=== PATIENT | male | born 1975 | race Caucasian/White ===

== ENCOUNTER 2016-07-08 18:06 | Emergency (ER) | payer BC ==
[2016-07-08] MEDS ORDERED: Ibuprofen TAB* 600 MG PO ONE (21:10)
[2016-07-08] MEDS ORDERED: oxyCODONE/Acetamin 5/325 MG* TAB PO ONE ×2 (21:10→21:36)
--- NOTE | 2016-07-08 21:32 | RAD ---
HISTORY: Pain, status post right knee trauma COMPARISONS: September 14, 2015 VIEWS: 4, Frontal, lateral, axial, and oblique views of the right knee FINDINGS: BONE DENSITY: Normal. BONES: There is no displaced fracture. JOINTS: There is no arthropathy. There is no suprapatellar joint effusion or lipohemarthrosis. ALIGNMENT: There is no dislocation. SOFT TISSUES: Unremarkable. OTHER FINDINGS: None. IMPRESSION: NO ACUTE OSSEOUS INJURY. IF SYMPTOMS PERSIST, RECOMMEND REPEAT IMAGING.
--- NOTE | 2016-07-08 21:32 | ED ---
Lower Extremity - HPI Summary HPI Summary: Patient was jumping on a trampoline for his child's birthday alliance party when his knee gave out. He had immediate pain and swelling in the knee, and was unable to bear weight because it kept collapsing. He denies previous injury to this knee. There is swelling and pain. He is unable to raise the lower part of his leg in the air. No N/T. - History of Current Complaint Chief Complaint: EDExtremityLower Stated Complaint: RIGHT KNEE POSSIBLE DISLOCATION Time Seen by Provider: 07/08/16 20:59 Hx Obtained From: Patient, Family/Cement Handler Mechanism Of Injury: Twisted Onset of Pain: Immediate Onset/Duration: Hours Severity Initially: Severe Severity Currently: Moderate Pain Intensity: 3 Timing: Constant Location: Is Discrete @ - right knee Character Of Pain: Dull, Aching, Stiffness Associated Signs And Symptoms: Positive: Swelling, Knee Pain Aggravating Factor(s): Standing, Movement Alleviating Factor(s): Nothing Able to Bear Weight: No - Allergies/Home Medications Allergies/Adverse Reactions: Allergies Allergy/AdvReac Type Severity Reaction Status Date / Time No Known Allergies Allergy Verified 09/14/15 16:41 PMH/Surg Hx/FS Hx/Imm Hx Previously Healthy: Yes Endocrine/Hematology History: Denies: Hx Anticoagulant Therapy, Hx Blood Disorders, Hx Anemia, Hx Unexplained Bleeding Infectious Disease History: No Infectious Disease History: Denies: Traveled Outside the [place] in Last 30 Days - Family History Known Family History: Positive: Cardiac Disease, Other - cancer (organ - no blood related cancer) - Social History Occupation: Employed Full-time Lives: With Family Alcohol Use: Occasionally Hx Substance Use: No Substance Use Type: Reports: None Hx Tobacco Use: No Smoking Status (MU): Never Smoked Tobacco Review of Systems Positive: Arthralgia, Decreased ROM, Edema Negative: Weakness, Paresthesia, Numbness All Other Systems Reviewed And Are Negative: Yes Physical Exam Triage Information Reviewed: Yes Vital Signs On Initial Exam: Initial Vitals Temp Pulse Resp BP Pulse Ox 98.0 F 83 20 137/78 97 07/08/16 18:09 07/08/16 18:09 07/08/16 18:09 07/08/16 18:09 07/08/16 18:09 Vital Signs Reviewed: Yes Appearance: Positive: Well-Appearing, Pain Distress, Obese Skin: Positive: Warm, Skin Color Reflects Adequate Perfusion, Dry, Soft Head/Face: Positive: Normal Head/Face Inspection Eyes: Positive: EOMI, KATYA, Conjunctiva Clear ENT: Positive: Hearing grossly normal Respiratory/Lung Sounds: Positive: Breath Sounds Present Cardiovascular: Positive: RRR Musculoskeletal: Positive: Limited @ - unable to perform SLR, Pain @ - TTP right patella and tibial tuberosity, Edema Right - knee Neurological: Positive: Sensory/Motor Intact, Alert, Oriented to Person Place, Time, NV Bundle Intact Distally Psychiatric: Positive: Affect/Mood Appropriate AVPU Assessment: Alert Diagnostics - Vital Signs Vital Signs Temp Pulse Resp BP Pulse Ox 07/08/16 19:38 98.4 F 69 133/82 97 07/08/16 18:09 98.0 F 83 20 137/78 97 - Laboratory Lab Statement: Any lab studies that have been ordered have been reviewed, and results considered in the medical decision making process. - Radiology No standard instances Xray Interpretation: Positive (See Comments) - patella mesfin Radiology Interpretation Completed By: ED Physician Lower Extremity Course/Dx - Diagnoses Differential Diagnosis/HQI/PQRI: Positive: Arthritis, Bursitis, Cellulitis, Contusion, Dislocation, Fracture (Closed), Phlebitis, Sprain, Strain Provider Diagnoses: Patellar tendon rupture Discharge - Discharge Plan Condition: Stable Disposition: HOME Prescriptions: oxyCODONE/Acetamin 5/325 MG* [Percocet 5/325 TAB*] 2 tab PO Q8H PRN #30 tab MDD 6 PRN Reason: Pain Patient Education Materials: Tendon Rupture (ED) Forms: *Work Release Referrals: Virgilio Abarca MD [Primary Care Provider] - Terry Hinton MD [Medical Doctor] - Additional Instructions: Please wear your knee immobilizer at all times. You can remove to shower and change clothes, but do not bear any weight on the leg at these times. Elevate your knee above your heart, ice and use ibuprofen 600mg three times daily with meals to reduce swelling and pain. Use pain medication as needed. Use crutches to ambulate. Call Dr. Hinton tomorrow with orthopedics for an appointment this week for evaluation. Return to the emergency department if your symptoms worsen.
[2016-07-08 22:49] VITALS: BP 147/90
== END 2016-07-08 22:49 | disposition home or self-care (01) ==
LOC: ED 18:06
DX: S76.111A Strain of right quadriceps muscle, fascia and tendon, initial encounter (principal); R60.9 Edema, unspecified; X50.0XXA Overexertion from strenuous movement or load, initial encounter; Y93.44 Activity, trampolining; Y92.89 Other specified places as the place of occurrence of the external cause; Y99.9 Unspecified external cause status
CPT/HCPCS: 99283; A9270-GY

== ENCOUNTER 2016-07-18 06:38 | Day surgery (SDC) | payer BC ==
[~2016-07-18 06:38] MED LIST: Buffered Lidocaine 1% SYR 3ML* 3 ML/SYR SYRINGE INTRADERM ONE
[2016-07-18] MEDS ORDERED: ceFAZolin 2 GM PREMIX (*) 2 GM/50 ML BAG IVPB ONE (06:57)
[2016-07-18] MEDS ORDERED: fentaNYL* 50 MCG/ML 2 ML VIAL (100 MCG VIAL) ONE ×3 (07:44→10:09)
[2016-07-18] MEDS ORDERED: Midazolam* 1 MG/ML 2 ML VIAL (2 MG) ONE (07:44)
[2016-07-18] MEDS ORDERED: Propofol* 10 MG/ML 20 ML BTL IV PUSH ONE ×2 (08:10→08:43)
[2016-07-18] MEDS ORDERED: Lidocaine 2% PF * 5 ML VIAL ONE (08:10)
[2016-07-18] MEDS ORDERED: Dexamethasone IV* 4 MG/ML 1 ML (4 MG) ONE (08:10)
[2016-07-18] MEDS ORDERED: Ondansetron INJ* 2 MG/ML VIAL ONE (08:10)
[2016-07-18] MEDS ORDERED: Succinylcholine* 20 MG/ML 10 ML VIAL ONE (08:10)
[2016-07-18] MEDS ORDERED: Bupivacaine 0.5% W/EPI SDV* 30 ML VIAL ONE (08:25)
[2016-07-18] MEDS ORDERED: HYDROmorphone INJ* 1 MG/ML CARPUJECT SYRINGE IV PRN (10:47)
[2016-07-18] MEDS ORDERED: Ketorolac INJ* 30 MG/ML 1 ML VIAL IV PRN (10:47)
[2016-07-18] MEDS ORDERED: fentaNYL* 50 MCG/ML 2 ML VIAL (100 MCG VIAL) IV PRN (10:47)
[2016-07-18] MEDS ORDERED: Ketorolac INJ* 30 MG/ML 1 ML VIAL ONE (10:57)
[2016-07-18] MEDS ORDERED: oxyCODONE/Acetamin 5/325 MG* TAB ONE (11:23)
[2016-07-18] MEDS ORDERED: HYDROmorphone INJ* 1 MG/ML CARPUJECT SYRINGE ONE (12:09)
[2016-07-18 12:57] VITALS: BP 143/73
--- NOTE | 2016-07-19 10:51 | OP ---
OPERATIVE NOTE: DATE OF OPERATION: 07/18/16 DATE OF : 77 SURGEON: Mino Mata MD. GLAZING MACHINE OPERATOR: VISHNU Bravo. ANESTHESIOLOGIST: Drea Saldana MD. ANESTHESIA: General anesthesia, local anesthesia. PRE-OP DIAGNOSIS: Right patellar tendon rupture. POST-OP DIAGNOSIS: Right patellar tendon rupture. OPERATIVE PROCEDURE: Right open patellar tendon repair. ANTIBIOSIS: 2 g Ancef IV. IV FLUIDS: See Anesthesia note. TOURNIQUET TIME: 120 minutes at 300 mmHg. COMPLICATIONS: None. SPECIMENS: None. IMPLANTS: None. ESTIMATED BLOOD LOSS: Minimal. 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 He did this while using a tr[facility] [employer] [facility]. At the end of the alliance party, he went to the emergency department, where x-rays demonstrated a supe riorized right patella, without fracture. The patient was given the provisional diagnosis of a corona llar tendon rupture, given a knee immobilizer and crutches. Of note, the patient has a past medical history of psoriasis and has just started Cosentyx IV treatments. On exam in clinic, the patient h ad significant right knee swelling and tenderness to palpation at the proximal patellar tendon. His straight leg raise was not intact. There is a divot appreciated between the patellar tendon and th e patella and the patella was superiorized. MRI demonstrated what looked to be a partially midsubst ance tear laterally and a partial proximal tear medially off the undersurface of the patella. That w as the radiologist's read and that was my initial read, although I was less certain of this geometry of tear the longer I spent looking at the MRI. Therefore, I was ready for any type of repair, [id number], proximal repair with bone tunnels, mid substance repair, and even a distal tendon repair. DESCRIPTION OF PROCEDURE: Preoperative written consent. Operative extremity was marked in preopera tive holding. Benefits, risks, and potential complications of the procedure described in detail and agreed to. The patient was taken back to the operating room and placed supine on operating room ta ble. The patient was sedated and intubated. A high proximal thigh tourniquet was placed, but not e levated. The lateral thigh post was placed. Foot bumps on the table were placed to position the kn ee at both 30 and 90 degrees of flexion. The right lower extremity was prepped and draped. Surgica l time-out was performed. Esmarch was applied and the tourniquet was elevated 300 mmHg. An anterio r midline longitudinal skin incision was made. Initially this incision was made from just proximal to the distal pole of the patella to just distal to the tibial tuberosity. This incision was grace d down through the subcutaneous tissue with a deep knife and then with dissection scissors to the pa ratenon layer, which was not easily visible as it was involved in a clear disruption at the extensor mechanism about the proximal patellar tendon. Irrigation. Cleared off the extensor mechanism, diss ected the paratenon off of the patellar tendon after a midline longitudinal split in the paratenon. Most of the length of the patellar tendon was fully intact. There was a wisp of patellar tendon st ill attached to the lateral aspect of the patella. This was not substance of patellar tendon, and r ather appeared to just represent a part of a coronal plane shear of tendon tissue, likely the most a nterior part of the proximal lateral tendon. It appeared that this was mostly a disruption off of b one. The medial and lateral retinaculum, as expected, showed complete tears. Irrigation. Bone roshan jules x3 were made distal to proximal through the patella. HeAcertiv suture passer was used to pass kitty e temporary passing [place] of trust 2-0 sutures. These drill holes definitely did not violate the a rticular cartilage deep and went the full length of the patella. Before drilling the tunnels, I imm obilized nicely the patella in all directions, freeing it up medial, lateral, and proximal superfici al to the extensor mechanism with my digits safely. I next addressed the patellar tendon. It looke d as though the patellar tendon would nicely reach the patella, so no interposition of tissue of any sort was required. I used a FiberWire #5 suture and placed two Krackow stitches in the distal and then in the proximal direction through the patellar tendon. Passed suture through the bone tunnels using [place] of trust temporary sutures. I then moved the central sutures to the medial and lateral side, so as not to incarcerate any quadriceps tendon. With the knee fully extended and the patella nicely reduced, I tied these #5 FiberWire suture stitches proximally. I then took the wisp of corona llar tendon tissue, anterior and lateral off the patella and laid it nicely over the patellar tendon . I then whip-stitched this wisp of tissue over the other reconstructed patellar tendon with a whip stitch using a FiberWire #2 suture. I then placed one additional whipstitch with a FiberWire #2 sut ure. This satisfied me that there were many interlocking stitches in the patellar tendon. I then c losed the medial and lateral retinaculum with several permanent stitches, Ti-Cron 0 suture figure-of -eight stitches as well as multiple gajqvo-ua-lpxxp stitches using absorbable Vicryl 0 suture. I te sted the repair and the knee was able to flex 45 degrees easily with gravity without any disruption of the repair. Some additional yvbqtw-tk-jysc stitches with Vicryl 0 suture of some overlying tissu es about the patella and extensor mechanism. I then closed the paratenon with a running stitch as w ell as several simple stitches using Vicryl 2-0 suture. Irrigation. Closure of the subcutaneous ti ssue with buried simple stitches using Vicryl 2-0 suture. Closure of the skin with lea. Tourniq uet was deflated at 120 minutes. Xeroform, 4x4's, ABDs, sterile Webril, Iglesia bandages from foot to p roximal thigh. With the patient still completely sedated, placed a knee brace, locked in full exten vera. The patient was awakened, extubated, and transferred to the PACU. DISPOSITION: The patient will follow up with me 12 to 14 days postoperatively. Percocet for pain co ntrol, aspirin for DVT prophylaxis, and Keflex for infection prophylaxis. I stressed to the patient 's family the importance of him remaining in that knee brace locked in extension at all times. The patient's says that he is noncompliant, so I really emphasized the importance of this surgery w orking well on him following rehab. I emphasized the fact that if the patellar tendon repair fails, patellar tendon reconstructions with allograft, Achilles tendons, and other auto or allografts do n ot do well at all and do not result in full function, so it is really important that he follows my i nstructions. Depending on how the patient recovers in the first few days, I will determine whether or not I want to send him to physical therapy prior to my first postoperative clinic visit with him. [id number]/[facility] #: [id number]
== END 2016-07-18 13:00 | disposition home or self-care (01) ==
LOC: OR 06:38
PROVIDERS: ATTEND Orthopaedic Surgery
DX: S76.111A Strain of right quadriceps muscle, fascia and tendon, initial encounter (principal); G47.33 Obstructive sleep apnea (adult) (pediatric); X50.0XXA Overexertion from strenuous movement or load, initial encounter; Y93.44 Activity, trampolining; Y92.89 Other specified places as the place of occurrence of the external cause
CPT/HCPCS: A9270-GY; J0330; J0690; J1100; J1170; J1885; J2250; J2405; J2704; J3010

== ENCOUNTER 2017-06-04 16:37 | Emergency (ER) | payer BC ==
--- OUTSIDE RECORDS SUMMARY | 2017-06-04 17:18 | XMS REPORT ---
:1975 External Reference #:[id number] Author Organization [facility] Address [address] [address] Phone [phone] Care Team Providers Name Role Phone Ahsan Rosas MD Primary Care Physician Unavailable Payers Type Date Identification Numbers Payment Provider Subscriber Commercial Effective: Policy Number: BS Terrell Bentley 2014 [id number] PayID: [id number] [address] [address] [place] [address] Medigap Part B Effective: Policy Number: BS Nakul Bentley 2008 [id number] Expires: 2014 PayID: [id number] [address] [address] [place] [address] Problems Description No Information Family History Date Family Member(s) Problem(s) Comments General Heart Disease General Cancer General Stroke Social History Type Date Description Comments 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 Use Denies alcohol use Smoking Patient has never smoked Exercise Type/Frequency Does not exercise Allergies, Adverse Reactions, Alerts Date Description Reaction Status Severity Comments 07/10/2016 NKDA active Medications Medication Date Status Form Strength Qnty SIG Indications Ordering Provider Cosentyx / Active Solution 150mg/ml Inject 2 Pens Unknown Sensoready 0000 Auto-Injec Subcutaneously Pen t Once Weekly On Weeks 0 1 2 3 And 4 Percocet 07/25/ Hx Tablets 5-325mg 42tab 1 tab by mouth Mino 2016 every 4-6 hours F 08/27/ Partha Mata MD Valium 07/19/ Hx Tablets 5mg 30tab Take 1 tab Mino 2016 - every 6 hours F 08/27/ as needed for Esperanza 2016 pain and muscle MD spasm Percocet 07/18/ Hx Tablets 5-325mg 60tab take 1-2 tabs Mino 2016 - by mouth q4-6 F 08/27/ hours as needed Partha Mata pain MD Keflex 07/18/ Hx Capsules 500mg 40cap 1 tab by mouth Mino 2016 - four times a F 08/27/ day Partha Mata MD Aspirin 07/18/ Hx Tablets 325mg 20tab 1 by mouth Adalberto 2016 - twice daily Ryan, until post op M.D. 2017 visit Fluoxetine / Hx Capsules 20mg take 2 capsules Unknown HCL 0000 - by mouth once daily 2016 Bupropion / Hx Tablets ER 150mg take 1 tablet Unknown HCL ER (XL) 0000 - 24HR by mouth once 2016 Vital Signs Date Vital Result Comment 05/06/2017 Height 67 inches 5'7" Weight 250.00 lb per pt Heart Rate 70 /min reg BP Systolic Sitting 150 mmHg Rue, lg cuff BP Diastolic Sitting 94 mmHg Rue, lg cuff Respiratory Rate 16 /min Body Temperature 98.3 F tympanic Pain Level 4 right knee BMI (Body Mass Index) 39.2 kg/m2 04/30/2017 Height 67 inches 5'7" Weight 250.00 lb Heart Rate 78 /min Respiratory Rate 14 /min Body Temperature 97.8 F Pain Level 0 BMI (Body Mass Index) 39.2 kg/m2 01/29/2017 Height 67 inches 5'7" Weight 250.00 lb Heart Rate 65 /min Respiratory Rate 16 /min Body Temperature 97.1 F Pain Level 0 BMI (Body Mass Index) 39.2 kg/m2 11/22/2016 Height 67 inches 5'7" Weight 250.00 lb Heart Rate 80 /min Respiratory Rate 15 /min Pain Level 0 BMI (Body Mass Index) 39.2 kg/m2 10/09/2016 Height 67 inches 5'7" Weight 250.00 lb Heart Rate 72 /min BP Systolic 136 mmHg BP Diastolic 86 mmHg Respiratory Rate 17 /min Body Temperature 95.8 F Pain Level 0 BMI (Body Mass Index) 39.2 kg/m2 08/28/2016 Height 67 inches 5'7" Weight 230.00 lb Respiratory Rate 16 /min Pain Level 0 BMI (Body Mass Index) 36.0 kg/m2 08/14/2016 Height 67 inches 5'7" Weight 230.00 lb Heart Rate 77 /min BP Systolic 125 mmHg BP Diastolic 82 mmHg Respiratory Rate 19 /min Body Temperature 97.7 F Pain Level 0 BMI (Body Mass Index) 36.0 kg/m2 07/30/2016 Height 67 inches 5'7" Weight 230.00 lb Respiratory Rate 16 /min Body Temperature 98.6 F Pain Level 1 BMI (Body Mass Index) 36.0 kg/m2 07/10/2016 Height 67 inches 5'7" Weight 230.00 lb Heart Rate 83 /min BP Systolic 136 mmHg BP Diastolic 91 mmHg BMI (Body Mass Index) 36.0 kg/m2 Results Description No Information Procedures Date CPT Code Description Status 07/18/2016 28526 Repair Infrapatellar Tendon Primary Completed 07/18/2016 36757 Repair Infrapatellar Tendon Primary Completed 06/23/2009 14768 ECHO Transthoracic, Real-Time 2D With Doppler And Color Completed Flow 03/01/2009 69029 ECHO Stress Test Incl Perf Contiuous ekg Monitoring Completed W/Phys Superv 03/01/2009 96415 ECHO Stress Test Incl Perf Contiuous ekg Monitoring Completed W/Phys Superv Encounters Type Date Location Provider CPT E/M Dx Office Visit 01/29/2017 [facility] Mino Mata, 99419 S86.211D 9:15a [facility] Office Visit 11/22/2016 [facility] M[facility] Mata 48252 S86.211D 8:00a [facility] Office Visit 07/10/2016 [facility] Mino Mata, 29342 M76.51 9:30a [facility] S86.812A Office Visit 03/01/2009 8:30a [facility] Ashwini Oconnor, 71327 786.05 M.Nasreen 278.00 Plan of Care Future Appointment(s):07/02/2017 8:30 am - Mino Mata MD at [facility]/06/2017 - Mino Mata MDS86.211D Strain musc/tend ant grp at low leg level, right leg, subsFollow up:Follow up: follow -up by telephone after I get the official MRI read
--- OUTSIDE RECORDS SUMMARY | 2017-06-04 17:18 | XMS REPORT ---
:1975 External Reference #:[id number] Author Organization [facility] [employer] [employer] Address [address] [place] [address] Phone [phone] Care Team Providers Name Role Phone Ahsan Rosas MD Care Team Information Human Resources Officer Unavailable Ahsan Rosas MD Primary Care Physician Unavailable Payers Type Date Identification Numbers Payment Provider Subscriber Commercial Policy Number: [id number] BS MISA Qiana Bentley PayID: [id number] [address] [address] [place] [address] Problems Description No Information Family History Date Family Member(s) Problem(s) Comments Father Cancer First Sister Sleep Apnea Social History Type Date Description Comments 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 four times a day as needed for pain Cosentyx Active Soln 150mg/ml Unknown 000 Prefill Syringe Humira Hx PSKT Unknown 000 - 017 Wellbutrin SR 0 Hx Tablets ER daily Unknown 000 - 12HR 017 Vital Signs Date Vital Result Comment 05/15/2017 Weight 251.12 lb Height 67 inches 5'7" BMI (Body Mass Index) 39.3 kg/m2 BP Systolic 148 mmHg BP Diastolic 106 mmHg Heart Rate 81 /min O2 % BldC Oximetry 96 % Body Temperature 97.4 F Pain Level 0 pt states nos is sore to touch 03/15/2017 Weight 255.00 lb Height 67 inches 5'7" BMI (Body Mass Index) 39.9 kg/m2 BP Systolic 118 mmHg BP Diastolic 82 mmHg Heart Rate 83 /min O2 % BldC Oximetry 94 % Body Temperature 97.5 F Pain Level 0 01/18/2016 Weight 222.00 lb Height 67 inches 5'7" BMI (Body Mass Index) 34.8 kg/m2 BP Systolic 123 mmHg BP Diastolic 84 mmHg Heart Rate 83 /min O2 % BldC Oximetry 97 % Body Temperature 97.9 F [place] Score 18 10/28/2015 Weight 220.00 lb Height 67 inches 5'7" BMI (Body Mass Index) 34.5 kg/m2 BP Systolic 130 mmHg BP Diastolic 74 mmHg Heart Rate 75 /min O2 % BldC Oximetry 96 % Body Temperature 98.3 F [place] Score 14 Neck Circumference in inches 17 Results Description No Information Procedures Date CPT Code Description Status 03/15/2017 17873 Nasal Endoscopy, Diag. Completed 11/15/2015 99102 Sleep Study, Simultaneous Recording Of Completed Ventilation,Unattended Encounters Type Date Location Provider CPT E/M Dx Office Visit 03/15/2017 2:00p [facility] Parmjit Kilgore M.D. 21288 G47.33 J34.2 J34.3 Office Visit 01/18/2016 3:15p [facility] Parmjit Kilgore M.D. 40170 G47.33 E66.9 J31.0 Office Visit 10/28/2015 10:45a [facility] Rossana David M.D. 29336 G47.30 R06.83 E66.9 Plan of Care No Information Available
--- OUTSIDE RECORDS SUMMARY | 2017-06-04 17:18 | XMS REPORT ---
:1975 External Reference #:[id number] Author Organization [facility] Address [address] [place] [address] Phone [phone] Care Team Providers Name Role Phone Ahsan Rosas MD Care Team Information Mcat Tutor Unavailable Ahsan Rosas MD Primary Care Physician Unavailable Payers Type Date Identification Numbers Payment Provider Subscriber Commercial Policy Number: [id number] BS MISA Qiana Bentley PayID: [id number] [address] [address] [place] [address] Problems Description No Information Family History Date Family Member(s) Problem(s) Comments Father Cancer First Sister Sleep Apnea Social History Type Date Description Comments 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 Completed 11/15/2015 87624 Sleep Study, Simultaneous Recording Of Completed Ventilation,Unattended Encounters Type Date Location Provider CPT E/M Dx Office Visit 03/15/2017 2:00p [facility] Parmjit Kilgore M.D. 70687 G47.33 J34.2 J34.3 Office Visit 01/18/2016 3:15p [facility] Parmjit Kilgore M.D. 19911 G47.33 E66.9 J31.0 Office Visit 10/28/2015 10:45a [facility] Rossana David M.D. 08521 G47.30 R06.83 E66.9 Plan of Care Future Appointment(s):08/16/2017 1:45 pm - Parmjit Kilgore M.D. at [facility]
--- NOTE | 2017-06-04 18:18 | RAD ---
INDICATION: Drillbit versus right thumb COMPARISON: None TECHNIQUE: 3 views of the right thumb were obtained. FINDINGS: Overlying the midline dorsal right thumb distal phalanx there is a punctate hyperdense focus that could represent a small piece of metal in this clinical situation. There is evidence of soft tissue injury involving the right thumb nailbed and cuticle. The bones are normal alignment. Joint spaces appear maintained. No fracture is seen. IMPRESSION: Soft tissue injury with potential punctate subcutaneous foreign body.
[2017-06-04] MEDS ORDERED: Tetan/Diph/Pertus SYR(Tdap)* 0.5 ML SYR(BOOSTRIX) use SYR IM ONE (22:22)
[2017-06-04] MEDS ORDERED: Lidocaine 1%* 5 ML VIAL INJ ONE (22:27)
[2017-06-04] MEDS ORDERED: Cephalexin CAP* 500 MG PO ONE (22:40)
--- NOTE | 2017-06-04 22:45 | ED ---
Upper Extremity Pain - HPI Summary HPI Summary: 42M presents with puncture wound to right thumb. He broke a drill bit in his finger. He states that the bit might still be stuck in his finger. He denies any numbness or tingling. He denies any previous injury to the area. He is right handed. He does not know when his last tetanus is. The area continues to bleed. - History of Current Complaint Chief Complaint: EDExtremityUpper Stated Complaint: RT THUMB LAC/COLD Time Seen by Provider: 06/04/17 21:37 - Allergies/Home Medications Allergies/Adverse Reactions: Allergies Allergy/AdvReac Type Severity Reaction Status Date / Time No Known Allergies Allergy Verified 05/02/17 09:42 PMH/Surg Hx/FS Hx/Imm Hx Endocrine/Hematology History: Denies: Hx Anticoagulant Therapy, Hx Blood Disorders, Hx Diabetes, Hx Anemia , Hx Unexplained Bleeding Cardiovascular History: Denies: Hx Hypertension, Hx Pacemaker/ICD Respiratory History: Reports: Hx Sleep Apnea Sensory History: Denies: Hx Contacts or Glasses, Hx Hearing Aid Opthamlomology History: Denies: Hx Contacts or Glasses Psychiatric History: Reports: Hx Depression - uses medication Denies: Hx Panic Disorder - Surgical History Surgery Procedure, Year, and Place: PATELLA REPAIR RT KNEE 07/18/2016 Hx Anesthesia Reactions: No Infectious Disease History: No Infectious Disease History: Denies: Traveled Outside the [place] in Last 30 Days - Family History Known Family History: Positive: Cardiac Disease, Other - cancer (organ - no blood related cancer) - Social History Alcohol Use: Rare Hx Substance Use: No Substance Use Type: Reports: None Hx Tobacco Use: No Smoking Status (MU): Never Smoked Tobacco Review of Systems Negative: Fever Negative: Chest Pain Negative: Shortness Of Breath Positive: Other - right thumb puncture wound and nail avulsion All Other Systems Reviewed And Are Negative: Yes Physical Exam Triage Information Reviewed: Yes Vital Signs On Initial Exam: Initial Vitals Temp Pulse Resp BP Pulse Ox 98.6 F 79 18 164/99 97 06/04/17 17:01 06/04/17 17:01 06/04/17 17:01 06/04/17 17:01 06/04/17 17:01 Vital Signs Reviewed: Yes Appearance: Positive: Well-Appearing Skin: Positive: Warm, Dry, Other - puncture wound on right thumb with nail avulsion Head/Face: Positive: Normal Head/Face Inspection Eyes: Positive: Normal, Conjunctiva Clear Respiratory/Lung Sounds: Positive: Clear to Auscultation, Breath Sounds Present Cardiovascular: Positive: Normal, RRR Musculoskeletal: Positive: Strength/ROM Intact - right thumb Neurological: Positive: Normal Psychiatric: Positive: Normal - [place] Coma Scale Coma Scale Total: 15 Procedures - Laceration/Wound Repair 1 Location: Other - right thum Description: Irregular - puncture wound Length, Depth and Shape: puncture wound with nail avulsion Irrigated w/ Saline (ccs): 200 Laceration/Wound Explored: Other - unable to remove foreign body Layer Closure?: No - placed nail under nailbed Diagnostics - Vital Signs Vital Signs Temp Pulse Resp BP Pulse Ox 06/04/17 19:41 98.7 F 143/88 99 06/04/17 17:01 98.6 F 79 18 164/99 97 - Laboratory Lab Statement: Any lab studies that have been ordered have been reviewed, and results considered in the medical decision making process. - Radiology hand Xray Interpretation: Positive (See Comments) - IMPRESSION: Soft tissue injury with potential punctate subcutaneous foreign body. Radiology Interpretation Completed By: Radiologist Course/Dx - Course Course Of Treatment: 42M presents with puncture wound to right thumb. He broke a drill bit in his finger. He states that the bit might still be stuck in his finger. He denies any numbness or tingling. He denies any previous injury to the area. He is right handed. He does not know when his last tetanus is. The area continues to bleed. on exam has puncture wound to right thumb with nail avulsion. cleaned area unable to find foreign body seen on xray, placed nail back under nailbed. patient did not want me to cut nail to find foreign body. will give referral for ortho for foreign body removal and place on antibiotics. patient understand and agrees with plan. - Diagnoses Differential Diagnosis/HQI/PQRI: Positive: Fracture (Closed), Other - foreign body, nail avulsion Provider Diagnoses: Foreign body of right thumb, Nail avulsion Discharge - Discharge Plan Condition: Good Disposition: HOME Prescriptions: Cephalexin CAP* [Keflex CAP*] 500 mg PO BID #13 cap Patient Education Materials: Soft Tissue Foreign Body (ED) Referrals: Ahsan Rosas MD [Primary Care Provider] - Ahsan Haddad MD [Medical Doctor] - Additional Instructions: Take antibiotic twice a day for 7 days Perform warm soaks of area follow up with ortho to have object removed Return to ED if develop any signs of infection or any new or worsening symptoms
[2017-06-04 22:52] VITALS: BP 146/78
== END 2017-06-04 22:51 | disposition home or self-care (01) ==
LOC: ED 16:37
DX: S61.141A Puncture wound with foreign body of right thumb with damage to nail, initial encounter (principal); W27.8XXA Contact with other nonpowered hand tool, initial encounter; Y92.9 Unspecified place or not applicable; Z23 Encounter for immunization
CPT/HCPCS: 90715; 99283; A9270-GY

== ENCOUNTER 2017-07-19 06:17 | Observation (INO) | payer BC ==
[2017-07-19] MEDS ORDERED: Famotidine TAB* 20 MG PO ONE (06:26)
[2017-07-19] MEDS ORDERED: Al Hydrox/Mg Hydrox/Simet LIQ* 30 ML UDC PO ONE (06:26)
[2017-07-19] MEDS ORDERED: Lidocaine 2% VISCOUS* 15 ML UDC PO ONE (06:26)
[2017-07-19 06:47] LABS: ABS Basophils 0.1 10^3/ul (0-0.2); ABS Eosinophils 0.1 10^3/ul (0-0.6); ABS Lymphocytes 1.6 10^3/ul (1.0-4.8); ABS Monocytes 1.2 10^3/ul (0-0.8); ABS Neutrophils 11.4 10^3/ul (1.5-7.7); ABS Nucleated RBC 0 10^3/ul; Eosinophil % 0.8 % (0-6); Hematocrit 46 % (42-52); Lymphocyte % 11.4 % (25-47); Mean Corpuscular HGB Conc 35 g/dl (31-36); Mean Corpuscular Hemoglobin 29 pg (27-31); Mean Corpuscular Volume 83 fL (80-94); Mean Platelet Volume 9 um3 (7.4-10.4); Nucleated Red Blood Cells % 0.1; Platelet Count 213 10^3/ul (150-450); Red Blood Count 5.56 10^6/ul (4.0-5.4); Red Cell Distribution Width 14 % (10.5-15); White Blood Count 14.4 10^3/ul (3.5-10.8)
--- NOTE | 2017-07-19 06:48 | ED ---
Abdominal Pain/Male - HPI Summary HPI Summary: 42yo M presents by ambulance with epigastric pain that awoke him from sleep at 1 :30am today. Pain is burning in nature and radiates through to the back. EMS arrived and he was given 325mg ASA and nitro without benefit. Pt states he gets this pain frequently...almost all nights, but it usually only lasts 2hrs. This persisted. Denies CP, dyspepsia, SOB. Mild nausea without vomiting. No personal risk factors for cardiac dz. No ETOH. Is taking BID Naproxen for knee pain. Denies melena. - History of Current Complaint Chief Complaint: EDAbdPain Stated Complaint: CHEST PAIN Time Seen by Provider: 07/19/17 06:23 Hx Obtained From: Patient, EMS Pain Intensity: 7 - Allergies/Home Medications Allergies/Adverse Reactions: Allergies Allergy/AdvReac Type Severity Reaction Status Date / Time No Known Allergies Allergy Verified 05/02/17 09:42 PMH/Surg Hx/FS Hx/Imm Hx Previously Healthy: Yes - psoriasis only Endocrine/Hematology History: Denies: Hx Anticoagulant Therapy, Hx Blood Disorders, Hx Diabetes, Hx Anemia , Hx Unexplained Bleeding Cardiovascular History: Denies: Hx Hypertension, Hx Pacemaker/ICD Respiratory History: Reports: Hx Sleep Apnea Sensory History: Denies: Hx Contacts or Glasses, Hx Hearing Aid Opthamlomology History: Denies: Hx Contacts or Glasses Psychiatric History: Reports: Hx Depression - uses medication Denies: Hx Panic Disorder - Surgical History Surgery Procedure, Year, and Place: PATELLA REPAIR RT KNEE 07/18/2016 Hx Anesthesia Reactions: No Infectious Disease History: No Infectious Disease History: Denies: Traveled Outside the [place] in Last 30 Days - Family History Known Family History: Positive: Cardiac Disease, Other - cancer (organ - no blood related cancer) - Social History Lives: With Family Alcohol Use: Rare Hx Substance Use: No Substance Use Type: Reports: None Hx Tobacco Use: No Smoking Status (MU): Never Smoked Tobacco Review of Systems Constitutional: Negative ENT: Negative Negative: Palpitations, Chest Pain Negative: Shortness Of Breath, Cough Positive: Abdominal Pain, Nausea, Other - denies melena. Negative: Vomiting Positive: Other - mid back pain All Other Systems Reviewed And Are Negative: Yes Physical Exam Triage Information Reviewed: Yes Vital Signs On Initial Exam: Initial Vitals Temp Pulse Resp BP Pulse Ox 36.6 C 67 12 146/74 96 03/02/18 06:22 07/19/17 06:22 07/19/17 06:22 07/19/17 06:22 07/19/17 06:22 Vital Signs Reviewed: Yes Appearance: Positive: Well-Appearing, No Pain Distress, Well-Nourished Skin: Positive: Warm, Dry Head/Face: Positive: Normal Head/Face Inspection Eyes: Positive: Normal, EOMI ENT: Positive: Normal ENT inspection Neck: Positive: Supple, Nontender Respiratory/Lung Sounds: Positive: Clear to Auscultation, Breath Sounds Present Cardiovascular: Positive: Normal, RRR, Pulses are Symmetrical in both Upper and Lower Extremities Abdomen Description: Positive: Nontender, No Organomegaly, Soft. Negative: Distended Musculoskeletal: Positive: Normal, Strength/ROM Intact Neurological: Positive: Normal, Sensory/Motor Intact Psychiatric: Positive: Normal AVPU Assessment: Alert Diagnostics - Vital Signs Vital Signs Temp Pulse Resp BP Pulse Ox 07/19/17 06:22 36.6 C 67 12 146/74 96 - Laboratory Result Diagrams: 07/19/17 06:37 Lab Statement: Any lab studies that have been ordered have been reviewed, and results considered in the medical decision making process. - Radiology No standard instances Xray Interpretation: No Acute Changes Radiology Interpretation Completed By: ED Physician - EKG No standard instances EKG Interpretation: 06:44am NSR rate of 60, nl axis, intervals and ST segments. Abdominal Pain Fem Course/Dx - Course Course Of Treatment: Pt tx for likely GI source and eval for possible cardiac cause. - Diagnoses Differential Diagnosis/HQI/PQRI: ACS, AMI, Gall Bladder Disease, Pancreatitis, Other - gastritis Provider Diagnoses: Epigastric abdominal pain, Gastritis Discharge - Discharge Plan Condition: Stable Disposition: OTHER Discharge Disposition Comment: Signed out to Dr Crespo at 0700. Referrals: Ahsan Rosas MD [Primary Care Provider] -
[2017-07-19 07:03] LABS: EGFR Non-African American 87.4 (>60)
[2017-07-19] MEDS ORDERED: Ondansetron INJ* 2 MG/ML VIAL IV ONE ×2 (07:09→08:07)
[2017-07-19 07:51] LABS: INR 0.95 (0.77-1.02)
--- NOTE | 2017-07-19 07:54 | RAD ---
HISTORY: Chest pain COMPARISONS: February 01, 2015 VIEWS: 1: frontal portable view of the chest at 6:48 AM FINDINGS: LINES AND TUBES: None. CARDIOMEDIASTINAL SILHOUETTE: The cardiomediastinal silhouette is normal for portable technique. PLEURA: The costophrenic angles are sharp. No pleural abnormalities are noted. LUNG PARENCHYMA: The lungs are clear. ABDOMEN: The upper abdomen is clear. There is no subphrenic gas. BONES AND SOFT TISSUES: No bone or soft tissue abnormalities are noted. IMPRESSION: NO ACTIVE CARDIOPULMONARY DISEASE.
[2017-07-19] MEDS ORDERED: HYDROmorphone INJ* 1 MG/ML CARPUJECT SYRINGE IV ONE (08:07)
--- NOTE | 2017-07-19 09:59 | RAD ---
INDICATION: Right upper quadrant pain COMPARISON: None TECHNIQUE: Longitudinal and transverse scans of the right upper quadrant were obtained. Doppler interrogation of the hepatic and portal venous system was performed. FINDINGS: Liver: The liver is top normal in size and echogenicity. There are no focal masses. The liver measures 18.3 cm in cephalocaudal dimension. Vessels: There is normal hepatic and portal venous flow. Bile ducts: There is no evidence of intrahepatic or extrahepatic ductal dilatation. The common duct measures 0.5 cm. Gallbladder: There is mild thickening of the gallbladder wall and mild pericholecystic fluid. There is biliary sludge. There is cholelithiasis with a calcified 1.1 cm stone. Pancreas: The visualized pancreas appears normal Right kidney: The right kidney is normal in size and echogenicity. There are no masses or calculi. There is no evidence of hydronephrosis. The right kidney measures 12.1 x 5.2 x 6.6 cm. IVC and aorta: The aorta and superior vena cava appear normal. Fluid: There is no ascites. Other: None. IMPRESSION: CHOLELITHIASIS WITH FINDINGS SUGGESTIVE OF MILD ACUTE CHOLECYSTITIS
[2017-07-19] MEDS ORDERED: NS 0.9% 1000 ML* 1,000 ML IV ONE (11:21)
[2017-07-19] MEDS ORDERED: Meperidine SYRINGE* 50 MG/ML IV ONE (11:27)
[2017-07-19] MEDS ORDERED: Piperacillin/Tazobac ADVAN(*) 3.375 GM in NS 0.9% 100 ML* 100 ML IVPB ONE (11:27)
[2017-07-19 14:43] LABS: Urine Appearance Clear; Urine Blood Negative (Negative); Urine Color Yellow; Urine Ketones Negative (Negative); Urine Protein 1+(30 mg/dL) (Negative); Urine Specific Gravity 1.021 (1.010-1.030); Urine Urobilinogen Negative (Negative)
--- NOTE | 2017-07-19 15:29 | HP ---
CC: Dr. Ahsan Rosas* DATE OF ADMISSION: 07/19/2017. The patient was seen initially in the ED. ATTENDING SURGEON: Dr. Alena Murphy* (VISHNU Lindsey dictating). CHIEF COMPLAINT: Right upper quadrant abdominal pain. HISTORY OF PRESENT ILLNESS: This is a 42-year-old, morbidly obese male with a past history of epigastric and right upper quadrant pain with current attack beginning early this morning around 1:30 a.m. He had had a prior attack Saturday night which last an [id number] and had been similar to past attacks over the past 9 to 12 months. The big difference with the current attack is that it did not subside after the typical pmbq-iyh-[id number]-half to two hours , such that he then presented to the ED. Pain is located in the epigastric region with radiation to the right upper quadrant and straight through to the back. It has been associated with nausea and vomiting, as well as dizziness, chills and sweats. Other than the duration, the current attack is similar to other past attacks. He received no benefit from Dilaudid initially, but Demerol did seem to afford him some relief. The pain at its peak was between 8 and 9/10 and is now down to 4/10. He states that his temperature in the ambulance was 101. He denies any changes in urine or stool. There is a positive family history of gallbladder disease in his mother. He has not had any prior abdominal surgeries. Ultrasound done here in the ED shows a 1.1 cm calcified gallstone, along with sludge and mild gallbladder wall thickening as well as pericholecystic fluid. The ducts were nondilated. Dr. Murphy was also down to see and exam the patient and agrees with the assessment. PAST MEDICAL HISTORY: Morbid obesity, obstructive sleep apnea, right knee pain (status post patellar tendon repair 07/18/2016), plaque psoriasis (on maintenance Cosentyx). PAST SURGICAL HISTORY: Nasal septoplasty. Repair Right patellar tendon 07/18/16. No problems related to anesthesia or surgery. MEDICATIONS: 1. Cosentyx injection q.month. 2. Naproxen 500 mg b.i.d. DRUG ALLERGIES: None known. FAMILY HISTORY: Negative for anesthesia problems, bleeding or clotting disorders. SOCIAL HISTORY: The patient is . He has three children. His accompanies him. 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 He denies the use of tobacco. He drinks on average three alcoholic drinks per month. He denies other recreational drug use. REVIEW OF SYSTEMS: General: No recent constitutional symptoms or acute illnesses, other than described above. He states that he has gained approximately 50 pounds since his right knee surgery a year ago due to decreased activity. Cardiovascular: No chest pain, palpitations, history of hypertension or heart murmur. Respiratory: No history of asthma, chronic cough or shortness of breath. GI: As above her HPI. No lower GI symptoms. : No dysuria or dark urine. Endocrine: No diabetes or thyroid dysfunction. He is morbidly obese and states that he is contemplating bariatric surgery. PHYSICAL EXAMINATION GENERAL: Well-nourished, obese male in no acute distress. He appears comfortable lying on the ED stretcher. SKIN: Warm and dry. No suspicious rashes or lesions noted. There are a few areas consistent with resolving plaque psoriasis, including the left elbow and the umbilicus (patient states this is much improved since starting the Cosentyx) . VITAL SIGNS: Height 5'7", weight 260 pounds. Temperature 97.9, blood pressure 136/83, pulse 73, respirations 16, room air saturation 96 percent. HEENT: Pupils equal and round, reactive, EOM's intact. No conjunctival pallor or scleral icterus. Oropharynx: Mucus membranes are moist. Teeth are in good repair. No intraoral lesions. NECK: No lymphadenopathy, thyromegaly, or masses. LUNGS: Clear to auscultation. No wheezes. HEART: Regular rate and rhythm. No murmur noted. ABDOMEN: Obese. Bowel sounds are normal. Soft with moderate tenderness in the right upper quadrant, but without definitive Melvin sign. No palpable masses or organomegaly. The remainder of the abdomen is soft and nontender. No palpable inguinal hernias. Genitalia otherwise not examined. BACK: No spinous process or CVA tenderness. EXTREMITIES: No edema. NEUROLOGIC: Grossly intact. LABORATORY DATA: Laboratory reviewed, including white blood cell count 14,400 with left shift, elevated D-dimer at 329 (nonspecific). Electrolytes, BUN and creatinine are all normal. Glucose mildly elevated at 129. Liver function test and lipase are normal. Ultrasound of the gallbladder as noted above. IMPRESSION: Cholelithiasis with acute cholecystitis. PLAN: Admission for IV hydration and pain control. Likely to OR for laparoscopic cholecystectomy pending Dr. Murphy's recommendation. VISHNU LINDSEY [id number]/[facility] #: [id number] PHOEBE
[2017-07-19] MEDS ORDERED: Piperacillin/Tazobactam VIAL*) 3.375 GM VIAL (COMPD & OVERRIDE) IVPB ONE (15:48)
[2017-07-19] MEDS ORDERED: Propofol* 10 MG/ML 20 ML BTL IV PUSH ONE (16:09)
[2017-07-19] MEDS ORDERED: fentaNYL* 50 MCG/ML 2 ML VIAL (100 MCG VIAL) ONE ×3 (16:09→17:15)
[2017-07-19] MEDS ORDERED: Bupivacaine 0.25% SDV* 30 ML ONE (16:10)
[2017-07-19] MEDS ORDERED: Atracurium* 10 MG/ML 10 ML VIAL ONE (16:10)
[2017-07-19] MEDS ORDERED: Midazolam* 1 MG/ML 5 ML VIAL (5 MG) ONE (16:10)
[2017-07-19] MEDS ORDERED: Dexamethasone IV* 4 MG/ML 1 ML (4 MG) ONE (16:42)
[2017-07-19] MEDS ORDERED: DiMENhydriNATE IV* 50 MG/ML VIAL IV PUSH PRN (16:59)
[2017-07-19] MEDS ORDERED: HYDROmorphone INJ* 1 MG/ML CARPUJECT SYRINGE IV PRN (16:59)
[2017-07-19] MEDS ORDERED: oxyCODONE/Acetamin 5/325 MG* TAB PO PRN (16:59)
[2017-07-19] MEDS ORDERED: fentaNYL* 50 MCG/ML 2 ML VIAL (100 MCG VIAL) IV PRN (16:59)
[2017-07-19] MEDS ORDERED: HYDROcodone/ACETAMIN 5-325 MG* 1 TAB PO PRN ×2 (16:59→17:35)
[2017-07-19] MEDS ORDERED: Naloxone* 0.4 MG/ML 1 ML VIAL IV PRN (16:59)
[2017-07-19] MEDS ORDERED: Ondansetron INJ* 2 MG/ML VIAL IV PRN ×2 (16:59→17:36)
[2017-07-19] MEDS ORDERED: Ondansetron INJ* 2 MG/ML VIAL ONE ×2 (17:07→20:46)
[2017-07-19] MEDS ORDERED: Ketorolac INJ* 30 MG/ML 1 ML VIAL ONE ×2 (17:07→20:46)
[2017-07-19] MEDS ORDERED: Neostigmine Methylsulfate* 2 MG/2 ML SYRINGE ONE (17:19)
[2017-07-19] MEDS ORDERED: Glycopyrrolate IV* 0.2 MG/ML 1 ML VIAL ONE (17:19)
--- NOTE | 2017-07-19 17:28 | BRIEFOPN ---
Brief Operative Note - Surgery Procedures: 07/19/17 Op Note Pre-op dx: cholecystitis Post-op dx: same Procedure: laparoscopic cholecystectomy Surgeon: Jeffrey Asst: Jaime Anesth: general EBL: 50 cc SCDs on during surgery Abx: given pre-op Pt. tolerated procedure well and was transferred to in a stable condition. CLFoster
[2017-07-19] MEDS ORDERED: Acetaminophen TAB* 325 MG PO PRN (17:34)
[2017-07-19] MEDS ORDERED: Meperidine SYRINGE* 50 MG/ML IV PRN (17:35)
[2017-07-19] MEDS ORDERED: Ketorolac INJ* 30 MG/ML 1 ML VIAL IV PUSH PRN (17:35)
[2017-07-19] MEDS: NS 0.9% 1000 ML* 1,000 ML IV SCH (20:58)
[2017-07-19] MEDS: Piperacillin/Tazobac ADVAN(*) 3.375 GM in NS 0.9% 100 ML* 100 ML IVPB SCH (22:47)
[2017-07-20] MEDS: Piperacillin/Tazobac ADVAN(*) 3.375 GM in NS 0.9% 100 ML* 100 ML IVPB SCH (06:12)
--- NOTE | 2017-07-20 06:50 | PN ---
Progress Note - Progress Note Date of Service: 07/20/17 Note: Surgery Mr. Bentley feels better than before surgery. He has tolerated some food, though he vomited the initial tuna sandwich. Vital Signs 07/19/17 07/19/17 07/19/17 07:19 07:20 07:30 Temperature Pulse Rate 59 60 Respiratory 16 20 Rate Blood Pressure 149/84 147/83 (mmHg) O2 Sat by Pulse 96 94 Oximetry 07/19/17 07/19/17 07/19/17 08:00 08:12 08:30 Temperature Pulse Rate 57 59 Respiratory 18 22 15 Rate Blood Pressure 145/81 135/87 (mmHg) O2 Sat by Pulse 95 95 Oximetry 07/19/17 07/19/17 07/19/17 09:00 09:27 09:30 Temperature Pulse Rate 56 58 63 Respiratory 19 14 17 Rate Blood Pressure 165/94 143/66 157/79 (mmHg) O2 Sat by Pulse 95 96 97 Oximetry 07/19/17 07/19/17 07/19/17 10:00 10:30 11:00 Temperature Pulse Rate 56 58 61 Respiratory 17 20 21 Rate Blood Pressure 139/87 154/84 133/79 (mmHg) O2 Sat by Pulse 96 95 97 Oximetry 07/19/17 07/19/17 07/19/17 11:30 11:36 11:41 Temperature Pulse Rate 65 59 Respiratory 16 18 Rate Blood Pressure 148/77 166/94 (mmHg) O2 Sat by Pulse 99 99 Oximetry 07/19/17 07/19/17 07/19/17 12:00 12:30 13:00 Temperature Pulse Rate 61 68 65 Respiratory 19 22 18 Rate Blood Pressure 140/81 152/76 118/67 (mmHg) O2 Sat by Pulse 96 96 95 Oximetry 07/19/17 07/19/17 07/19/17 13:30 14:00 14:30 Temperature Pulse Rate 71 70 68 Respiratory 16 18 18 Rate Blood Pressure 136/83 123/79 120/76 (mmHg) O2 Sat by Pulse 96 95 95 Oximetry 07/19/17 07/19/17 07/19/17 14:35 17:42 17:45 Temperature 98.6 F 96.8 F Pulse Rate 70 71 65 Respiratory 18 18 17 Rate Blood Pressure 120/86 140/78 145/84 (mmHg) O2 Sat by Pulse 95 96 93 Oximetry 07/19/17 07/19/17 07/19/17 17:46 17:50 17:54 Temperature Pulse Rate 68 68 Respiratory 15 18 Rate Blood Pressure 130/80 124/66 (mmHg) O2 Sat by Pulse 95 97 96 Oximetry 07/19/17 07/19/17 07/19/17 17:59 18:15 18:30 Temperature Pulse Rate 70 72 63 Respiratory 18 20 16 Rate Blood Pressure 135/90 107/66 124/88 (mmHg) O2 Sat by Pulse 96 93 92 Oximetry 07/19/17 07/19/17 07/19/17 18:45 19:00 19:15 Temperature 96.8 F Pulse Rate 69 62 77 Respiratory 18 17 16 Rate Blood Pressure 124/95 130/94 145/90 (mmHg) O2 Sat by Pulse 93 93 96 Oximetry 07/19/17 07/19/17 07/19/17 19:30 19:55 19:59 Temperature 98.2 F 98.2 F Pulse Rate 75 63 63 Respiratory 22 18 18 Rate Blood Pressure 146/88 132/77 132/77 (mmHg) O2 Sat by Pulse 96 98 98 Oximetry 07/19/17 07/19/17 07/19/17 21:02 21:14 21:20 Temperature 97.5 F Pulse Rate 65 Respiratory 20 16 Rate Blood Pressure 118/64 (mmHg) O2 Sat by Pulse 96 94 Oximetry 07/19/17 07/19/17 07/20/17 21:21 22:07 00:09 Temperature 98.0 F 97.6 F Pulse Rate 59 66 Respiratory 16 18 16 Rate Blood Pressure 114/65 114/64 (mmHg) O2 Sat by Pulse 94 95 Oximetry 07/20/17 02:25 Temperature 97.9 F Pulse Rate 58 Respiratory 18 Rate Blood Pressure 114/59 (mmHg) O2 Sat by Pulse 95 Oximetry Abd: distended, good BS, non-tender incisions: clean and dry Intake & Output 07/19/17 07/19/17 07/20/17 14:59 22:59 06:59 Intake Total 1100 1400 260 Output Total 550 400 Balance 1100 850 -140 Weight 260 lb Intake: IV Fluids 1100 1400 110 ABX - ZOSYN 110 lr 1400 Oral 150 Output: Urine 400 Emesis 500 Estimated Blood Loss 50 Other: Estimated Void Medium # Voids 1 Abnormal Lab Results 07/19/17 07/19/17 07/19/17 06:37 06:37 06:37 INR (Anticoag Therapy) APTT D-Dimer, Quantitative Sodium 135 Potassium 3.9 Chloride 103 Carbon Dioxide 26 Anion Gap 6 BUN 15 Creatinine 0.95 Est GFR ( Amer) 112.4 Est GFR (Non-Af Amer) 87.4 BUN/Creatinine Ratio 15.8 Glucose 129 H Lactic Acid 1.0 Calcium 9.0 Total Bilirubin 0.50 AST 21 ALT 28 Alkaline Phosphatase 79 Troponin I 0.00 B-Natriuretic Peptide 23 Total Protein 7.0 Albumin 4.5 Globulin 2.5 Albumin/Globulin Ratio 1.8 Lipase 19 Urine Color Urine Appearance Urine pH Ur Specific [place] Urine Protein Urine Ketones Urine Blood Urine Nitrate Urine Bilirubin Urine Urobilinogen Ur Leukocyte Esterase Urine WBC (Auto) Urine RBC (Auto) Ur Squamous Epith Cells Urine Bacteria Urine Glucose 18 18 07/19/17 06:37 09:51 09:51 INR (Anticoag Therapy) 0.95 APTT 33.7 D-Dimer, Quantitative 329 H Sodium Potassium Chloride Carbon Dioxide Anion Gap BUN Creatinine Est GFR ( Amer) Est GFR (Non-Af Amer) BUN/Creatinine Ratio Glucose Lactic Acid Calcium Total Bilirubin AST ALT Alkaline Phosphatase Troponin I 0.00 B-Natriuretic Peptide Total Protein Albumin Globulin Albumin/Globulin Ratio Lipase Urine Color Yellow Urine Appearance Clear Urine pH 7.0 Ur Specific [place] 1.021 Urine Protein 1+(30 mg/dl) A Urine Ketones Negative Urine Blood Negative Urine Nitrate Negative Urine Bilirubin Negative Urine Urobilinogen Negative Ur Leukocyte Esterase Negative Urine WBC (Auto) Absent Urine RBC (Auto) 1+(3-5/hpf) A Ur Squamous Epith Cells Present A Urine Bacteria Absent Urine Glucose Negative POD#1 s/p lap choley, doing well. Can go home on abx and norco. CLFoster
[2017-07-20 08:20] VITALS: BP 120/71
--- NOTE | 2017-07-20 08:24 | ED ---
Wil Quiroz Julia, scribed for Sergio Crespo MD on 07/19/17 at 0724 . Progress - Progress Note Progress Note: This patient is signed out from Dr. Mckenna at shift change, awaiting a CXR and disposition.A CXR reveals, NO ACTIVE CARDIOPULMONARY DISEASE, as per radiologist. ED Physician has reviewed this report. A Gallbladder US reveals, CHOLELITHIASIS WITH FINDINGS SUGGESTIVE OF MILD ACUTE CHOLECYSTITIS, as per radiologist. ED Physician has reviewed this report. Re-Evaluation - Re-Evaluation 1 Re-Evaluation Time: 08:03 Change: Unchanged - Patient's pain has not resolved with pain medication. Course/Dx - Course Course Of Treatment: Mr. Bentley was here in the department when I arrived. He had been seen for a sudden onset of epigastric pain during the night. He has had the pain before but it was worse and had lasted longer than usual. He does take nsaids. I saw him at 0730 and he stated that the pain medications he had been given (GI Cocktail) had not helped. He was tender in the epigastrium as well as the RUQ so I recommended a GB U/S and ordered dilaudid and zofran for the pain. His U/S showed mild cholecystitis and he had a mild leukocytosis. I re-examined him at that point and he stated that the pain medications did not help. I ordered demerol and zosyn for him at that point and consulted Dr. Murphy. She agreed to evaluate him for admission. - Provider Notifications Discussed Care Of Patient With: Alena Murphy Time Discussed With Above Provider: 11:27 Instructed by Provider To: Admit As Inpatient The documentation as recorded by the Wil faria Julia accurately reflects the service I personally performed and the decisions made by me, Sergio Crespo MD.
[2017-07-20] MEDS: NS 0.9% 1000 ML* 1,000 ML IV SCH (08:32)
[2017-07-20] MEDS ORDERED: Amoxicillin/Clavulanate TAB* 875 MG PO SCH (09:00)
--- NOTE | 2017-07-20 14:24 | OP ---
CC: [facility]; Ahsan Rosas MD OPERATIVE REPORT: DATE OF OPERATION: 07/19/17 DATE OF : 77 SURGEON: Alena Murphy MD CAMPAIGN ADVISOR: VISHNU Sandoval PRE-OP DIAGNOSIS: Cholecystitis. POST-OP DIAGNOSIS: Cholecystitis. OPERATIVE PROCEDURE: Laparoscopic cholecystectomy. INDICATIONS: Mr. Bentley is a 42-year-old male who presented to the emergency room with abdomina l pain consistent with cholecystitis and an ultrasound showing acute cholecystitis. DESCRIPTION OF PROCEDURE: He was admitted for IV antibiotics and brought to the operating room. He was placed on the OR table in a supine position and given general anesthesia. The abdomen was then p repped and draped in usual sterile fashion. After infiltrating with local anesthetic, an incision wa s made in the infraumbilical area and subcutaneous tissue was divided bluntly. The fascia was graspe d and incised and a 0 Vicryl stitch was placed on the either side of the fascial incision. A trocar was inserted into the abdomen and the abdomen was insufflated. Then under direct visualization, a garcia bxiphoid and 2 right subcostal ports were placed after infiltrating with local anesthetic. The gallb ladder was grasped and elevated over the liver bed. It was noted to be edematous, pale, and inflamed appearing. The dissection was begun around the infundibulum to expose the cystic duct. Once it was cleared, it was clipped and divided and then the cystic artery was identified, cleared, clipped and divided. The gallbladder was then taken down from the liver bed using electrocautery. Since it was edematous, this was somewhat difficult and the tension put on the gallbladder caused a couple of smal l openings with minimal leakage of bile. Once the gallbladder was taken down from the liver bed, it was placed in an EndoCatch bag and was drawn from the abdomen through the subxiphoid port site. The right upper quadrant was copiously irrigated with saline to evacuate blood, fluid and a small amount of bile. The liver bed had some bleeding points that were controlled with electrocautery. Once hemo stasis appeared adequate and all the irrigation fluid had been evacuated, the port was withdrawn unde r direct visualization. The previously placed 0 Vicryl was used to close the fascia of the infraumbi lical port site and 4-0 Monocryl was used to close the skin of all incisions. Shellii-Strips were appl ied. All sponge and instrument counts were correct. The patient tolerated the procedure well, was t ransferred to Recovery in stable condition. [id number]/[id number] #: [id number]
--- NOTE | 2017-07-21 02:50 | DS ---
CC: [facility]; Dr. Ahsan Rosas DISCHARGE SUMMARY: DATE OF ADMISSION: 07/19/17 DATE OF DISCHARGE: 07/20/17 ADMISSION DIAGNOSIS: Cholecystitis. DISCHARGE DIAGNOSIS: Cholecystitis. PROCEDURES DURING THIS HOSPITALIZATION: Included laparoscopic cholecystectomy. HOSPITAL COURSE: Mr. Bentley is a 42-year-old male admitted with cholecystitis. Please see the admission history and physical for details of findings at the time of admission. He underwent laparo scopic cholecystectomy without difficulty. It was found to be inflamed, so he was admitted overnight for antibiotics and the next morning feeling better and was stable for discharge. He was discharged to home with instructed to follow up as an outpatient. [id number]/[id number] #: [id number]
== END 2017-07-20 10:40 | disposition home or self-care (01) ==
LOC: ED 06:17 → OR 14:55 → SSU 17:31
PROVIDERS: ADMIT Surgery; ATTEND Surgery
PROC: 0FT44ZZ Resection of Gallbladder, Percutaneous Endoscopic Approach (ICD-10-PCS; principal; 2017-07-19 16:45)
DX: K80.10 Calculus of gallbladder with chronic cholecystitis without obstruction (principal); R10.11 Right upper quadrant pain; E66.01 Morbid (severe) obesity due to excess calories; G47.33 Obstructive sleep apnea (adult) (pediatric); M25.561 Pain in right knee; Z79.899 Other long term (current) drug therapy
CPT/HCPCS: 36415; 71045; 76705; 80053; 81003; 81015; 83605; 83690; 83880; 84484; 85025; 85379; 85610; 85730; 88304; 93005; 94660; 96365; 96366; 96375; 99285; A9270-GY; G0378; J1100; J1170; J1885; J2175; J2250; J2405; J2543; J2704; J3010